=== PATIENT | female | born 1970 ===

== ENCOUNTER 2020-07-15 08:15 | Inpatient (IN) | payer OTHER ==
[~2020-07-15] VITALS: Ht 170.2 cm; Wt 94.8 kg
[2020-07-15] MEDS ORDERED: PROVERA2.5 MG PO (10:50)
[2020-07-21] MEDS ORDERED: MEDROXYPROGESTE10 MG (13:12)
[2020-07-21] MEDS ORDERED: COMBIGAN EYE DRO5 ML (13:12)
== END 2020-07-23 10:17 | disposition home or self-care (01) | DRG 741 ==
LOC: SURH 07-21 08:15 → O/R 07-21 10:58 → OB/GYN 07-21 16:14 → SEC-K 07-21 20:48 → OB/GYN 07-21 20:49
PROVIDERS: ADMIT Obstetrics & Gynecology; ATTEND Obstetrics & Gynecology
PROC: 0UT90ZL Resection of Uterus, Supracervical, Open Approach (ICD-10-PCS; principal; 2020-07-21 08:30)
DX: C54.1 Malignant neoplasm of endometrium (principal); N80.0 Endometriosis of uterus; N94.4 Primary dysmenorrhea

== ENCOUNTER 2020-09-14 08:02 | Inpatient (IN) | payer OTHER ==
[~2020-09-14] VITALS: Ht 170.2 cm; Wt 95.3 kg
[~2020-09-14 08:02] MED LIST: COMBIGAN EYE DRO5 ML; MEDROXYPROGESTE10 MG; PROVERA2.5 MG PO
[2020-09-16] MEDS ORDERED: MEDROXYPROGESTE10 MG (11:10)
[2020-09-16] MEDS ORDERED: COMBIGAN EYE DRO5 ML (11:10)
== END 2020-09-17 10:48 | disposition home or self-care (01) | DRG 741 ==
LOC: O/R 09-16 08:10 → OB/GYN 09-16 08:10 → SURG 09-16 19:50 → OB/GYN 09-16 20:45 → SURG 09-17 10:48
PROVIDERS: ADMIT Obstetrics & Gynecology Gynecologic Oncology; ATTEND Obstetrics & Gynecology Gynecologic Oncology
PROC: 0UT24ZZ Resection of Bilateral Ovaries, Percutaneous Endoscopic Approach (ICD-10-PCS; 2020-09-16)
PROC: 0UT74ZZ Resection of Bilateral Fallopian Tubes, Percutaneous Endoscopic Approach (ICD-10-PCS; 2020-09-16)
PROC: 07BC4ZZ Excision of Pelvis Lymphatic, Percutaneous Endoscopic Approach (ICD-10-PCS; 2020-09-16)
PROC: 0TN74ZZ Release Left Ureter, Percutaneous Endoscopic Approach (ICD-10-PCS; 2020-09-16)
PROC: 0TN64ZZ Release Right Ureter, Percutaneous Endoscopic Approach (ICD-10-PCS; 2020-09-16)
PROC: 0UTC4ZZ Resection of Cervix, Percutaneous Endoscopic Approach (ICD-10-PCS; principal; 2020-09-16 20:45)
DX: C54.1 Malignant neoplasm of endometrium (principal); N72 Inflammatory disease of cervix uteri; N99.4 Postprocedural pelvic peritoneal adhesions; N73.6 Female pelvic peritoneal adhesions (postinfective); D28.2 Benign neoplasm of uterine tubes and ligaments; D36.0 Benign neoplasm of lymph nodes; N83.8 Other noninflammatory disorders of ovary, fallopian tube and broad ligament; Z90.711 Acquired absence of uterus with remaining cervical stump; Z20.822 Contact with and (suspected) exposure to COVID-19